=== PATIENT | female | born 1995 | race Caucasian/White ===

== ENCOUNTER → 2023-04-25 | Outpatient (CLI) | payer OTHER | LOC: M LAB 14:47 | PROVIDERS: ATTEND Physician Assistant | DX: O20.9 Hemorrhage in early pregnancy, unspecified (principal); Z3A.00 Weeks of gestation of pregnancy not specified ==

== ENCOUNTER → 2023-05-01 | Outpatient (CLI) | payer OTHER | LOC: M LAB 16:32 | PROVIDERS: ATTEND Physician Assistant | DX: O20.9 Hemorrhage in early pregnancy, unspecified (principal) ==

== ENCOUNTER 2023-05-07 17:59 | Observation (INO) | payer OTHER ==
[~2023-05-07] VITALS: Ht 170.2 cm; Wt 67.4 kg
[~2023-05-07 17:59] MED LIST changes: -ACET-683 PO; -IBUP200C25 PO; +LR 1,000 ML IV SCH
[2023-05-07] MEDS ORDERED: IBUP200C25 PO (18:25)
[2023-05-07 18:38] VITALS: BP 125/75; TEMP 99; O2SAT 100
[2023-05-07 20:00] VITALS: BP 124/60; TEMP 98; O2SAT 99
[2023-05-07] MEDS ORDERED: SCOPOLAMINE 1MG TRANSDERMAL PATCH TOP ONE (21:45)
[2023-05-07] MEDS ORDERED: fentaNYL 100 MCG/2 ML INJECTION As Ordered ONE (22:13)
[2023-05-07] MEDS ORDERED: ACETAMINOPHEN 1000MG 100ML IV BAG As Ordered ONE (22:13)
[2023-05-07] MEDS ORDERED: MIDAZOLAM INJ 2MG/2ML VIAL As Ordered ONE (22:13)
[2023-05-07] MEDS ORDERED: ROCURONIUM BROMIDE 50MG/5ML VIAL As Ordered ONE (22:13)
[2023-05-07] MEDS ORDERED: LIDOCAINE 2% 100MG/5ML SDV (FOR ANES.) As Ordered ONE (22:13)
[2023-05-07] MEDS ORDERED: propofoL 200 MG/20 ML VIAL As Ordered ONE (22:13)
[2023-05-07] MEDS ORDERED: ONDANSETRON 4MG 2ML VIAL As Ordered ONE (22:13)
[2023-05-07] MEDS ORDERED: HYDROmorphone HCL 2MG/ML 1ML VIAL As Ordered ONE (22:20)
[2023-05-07] MEDS ORDERED: SUGAMMADEX SODIUM 500 MG/5 ML VIAL (BRIDION) As Ordered ONE (22:26)
[2023-05-07] MEDS ORDERED: KETOROLAC 60MG 2ML VIAL As Ordered ONE (22:27)
[2023-05-07] MEDS ORDERED: MORPHINE 2 MG/ML 1ML VIAL IV PRN (22:55)
[2023-05-07] MEDS ORDERED: fentaNYL 100 MCG/2 ML INJECTION IV PRN (22:55)
[2023-05-07] MEDS ORDERED: ONDANSETRON 4MG 2ML VIAL IV PRN (22:55)
[2023-05-07] MEDS ORDERED: oxyCODONE 5MG TAB PO PRN (22:55)
[2023-05-07 23:55] VITALS: BP 112/66; TEMP 97.5; O2SAT 97
[2023-05-08] VITALS (7 sets, daily range): BP systolic 104–124; BP diastolic 52–63; TEMP 97.2–98.6; O2SAT 96–100
[2023-05-08] MEDS ORDERED: PERCOCET 5MG/325MG TAB PO PRN (01:15)
[2023-05-08] MEDS ORDERED: LR 1,000 ML IV SCH (01:15)
[2023-05-08] MEDS ORDERED: ACETAMINOPHEN 500 MG TAB PO PRN (02:05)
[2023-05-08] MEDS ORDERED: IBUPROFEN 800 MG TAB PO PRN (02:05)
[2023-05-08] MEDS ORDERED: ACET-683 PO (07:14)
== END 2023-05-08 10:45 | disposition home or self-care (01) ==
LOC: M SDC 17:59 → M PED 18:09
PROVIDERS: ADMIT Specialist; ATTEND Specialist
DX: O00.90 Unspecified ectopic pregnancy without intrauterine pregnancy (principal); Z88.0 Allergy status to penicillin
CPT/HCPCS: 36415; 59150; 86850; 86900; 86901; 88305; 96360; 96361; J0131; J0665; J1100; J1170; J1885; J2250; J2405; J3010

== ENCOUNTER → 2023-05-07 | Outpatient (CLI) | payer OTHER ==
[~2023-05-07] MED LIST: ACET-683 PO; IBUP200C25 PO
[2023-05-07 16:07] LABS: HEMATOCRIT 34.7 % (36.0-47.0); HEMOGLOBIN 11.6 g/dl (12.0-15.5); MEAN CORPUSCULAR HEMOGLOBIN 29.5 pg (27.0-33.0); MEAN CORPUSCULAR HGB CONC 33.4 g/dl (32.0-36.5); MEAN CORPUSCULAR VOLUME 88.3 fl (80.0-96.0); PLATELET COUNT, AUTOMATED 261 10^3/uL (150-450); RED BLOOD COUNT 3.93 10^6/uL (4.00-5.40); WHITE BLOOD COUNT 6.8 10^3/uL (4.0-10.0)
[2023-05-07 16:29] LABS: ALBUMIN 3.8 G/DL (3.2-5.2); ALKALINE PHOSPHATASE 68 U/L (46-116); ALT/SGPT 11 U/L (7.0-40); AST/SGOT < 8 U/L (<34); BILIRUBIN,TOTAL 0.6 MG/DL (0.3-1.2); BLOOD UREA NITROGEN 12 MG/DL (9-23); CARBON DIOXIDE LEVEL 28 MMOL/L (20-31); CHLORIDE LEVEL 106 MMOL/L (98-107); CREATININE FOR GFR 0.81 MG/DL (0.55-1.30); GLOMERULAR FILTRATION RATE > 60.0 (>60); GLUCOSE, FASTING 101 MG/DL (60-100); HCG, SERUM QUANTITATIVE 465.8 MIU/ML (<4.2); POTASSIUM SERUM 3.9 MMOL/L (3.5-5.1); SODIUM LEVEL 139 MMOL/L (136-145); TOTAL PROTEIN 6.5 G/DL (5.7-8.2)
== END ==
LOC: M RAD 15:42
PROVIDERS: ATTEND Advanced Practice Midwife
DX: O02.81 Inappropriate change in quantitative human chorionic gonadotropin (hCG) in early pregnancy (principal)

== ENCOUNTER → 2023-10-07 | Outpatient (REF) | payer OTHER ==
[~2023-10-07] MED LIST changes: +ACET-683 PO; +IBUP200C25 PO; -LR 1,000 ML IV SCH
[2023-10-07 21:19] LABS: APPEARANCE, URINE CLEAR (CLEAR); BACTERIA, URINE AUTO NEGATIVE (NEGATIVE); BILIRUBIN, URINE AUTO NEGATIVE (NEGATIVE); BLOOD, URINE BLOOD NEGATIVE (NEGATIVE); COLOR, URINE YELLOW (YELLOW); GLUCOSE, URINE (UA) AUTO NEGATIVE (NEGATIVE); KETONE, URINE AUTO NEGATIVE (NEGATIVE); LEUKOCYTE ESTERASE, URINE AUTO NEGATIVE (NEGATIVE); NITRITE, URINE AUTO NEGATIVE (NEGATIVE); PROTEIN, URINE AUTO NEGATIVE (NEGATIVE); RBC, URINE AUTO 0 /HPF (0-3); SPECIFIC GRAVITY URINE AUTO 1.005 (1.002-1.035); SQUAMOUS EPITHELIAL CELL UR AU 1 /HPF (0-6); UROBILINOGEN, URINE AUTO 0.2 mg/dL (0.0-2.0); WBC, URINE AUTO 0 /HPF (0-3)
== END ==
LOC: M LAB REF 21:08
PROVIDERS: ATTEND Physician Assistant Medical
DX: N39.0 Urinary tract infection, site not specified (principal)